=== PATIENT | female | born 1950 | race Caucasian/White ===

== ENCOUNTER 2016-09-15 08:08 | Day surgery (SDC) | payer OTHER ==
[~2016-09-15] VITALS: Ht 162.6 cm; Wt 81.7 kg
[~2016-09-15 08:08] MED LIST: ATIVAN1 MG PO; EXTRA STRENGTH500 M1 PO; HAIR SKIN NAIL1 EACH PO; LIPITOR10 MG PO; LO-DOSE ASPIRIN81 M2 PO; PLAVIX75 MG PO; TOPROL XL25 MG PO; ULTRAM50 MG PO; ZESTRIL2.5 MG PO
[2016-09-15 09:08] LABS: HEMATOCRIT 46.2 % (36.0-46.0); MCH 30.7 PG (29.0-34.0); MCHC 32.3 G/DL (30.0-36.0); MCV 95.1 FL (83-99); MEAN PLAT.VOLUME 10.3 uM^3 (9.5-12.4); PLATELET COUNT 231 K/uL (156-360); RBC DIS.WIDTH-CV 13.3 % (11.8-14.6); RBC DIS.WIDTH-SD 46.1 % (39-53); RED BLOOD COUNT 4.86 M/uL (3.80-5.20); WHITE BLOOD COUNT 9.5 K/uL (4.1-10.2)
[2016-09-15 09:26] VITALS: BP 184/84
[2016-09-15 09:33] LABS: ANION GAP 9 MEQ/L (2-14); CHLORIDE 104 MEQ/L (99-109); POTASSIUM 4.7 MEQ/L (3.7-5.4); SAMPLE HEMOLYSIS CHECK 1; SAMPLE ICTERIC CHECK 0; SAMPLE LIPEMIA CHECK 0; SODIUM 140 MEQ/L (136-147); TOTAL BILIRUBIN 0.4 MG/DL (0.0-1.0)
[2016-09-15 09:38] LABS: ALKALINE PHOSPHATASE 66 IU/L (3-129); GFR ESTIMATE (CALCULATED) > 59 mL/min/; GLUCOSE 103 mg/dL (70-99); UREA NITROGEN (BUN) 22 mg/dL (9-23)
[2016-09-15 12:05] VITALS: BP 147/76
[2016-09-15 13:10] VITALS: BP 132/62
== END 2016-09-15 13:20 | disposition home or self-care (01) ==
LOC: SDC 08:08
PROVIDERS: Ophthalmology
DX: H25.21 Age-related cataract, morgagnian type, right eye (principal); H27.01 Aphakia, right eye; I10 Essential (primary) hypertension; E78.5 Hyperlipidemia, unspecified; I25.10 Atherosclerotic heart disease of native coronary artery without angina pectoris; Z95.5 Presence of coronary angioplasty implant and graft
CPT/HCPCS: 80053; 85027; 93005; J0690; J1100; J2405; J2795; J3300